=== PATIENT | female | born 1990 | race Caucasian/White ===

== ENCOUNTER 2016-06-04 17:27 | Emergency (ER) | payer BC, MEDICAID ==
[~2016-06-04] VITALS: Ht 165.1 cm; Wt 108.4 kg
[2016-06-04 17:38] VITALS: BP_SYST 130
--- NOTE | 2016-06-04 17:43 | NUR ---
Patient triaged and placed in waiting room. VSS and patient appears in no acute distress at this time. Accompanied by SELF, awaiting available bed, and MD notified of need for MSE.
[2016-06-04 18:08] LABS: BASOPHILS # (AUTO) 0.1 K/uL (0.0-0.2); BASOPHILS % (AUTO) 0.5 % (0.0-2.0); EOSINOPHILS # (AUTO) 0.2 K/uL (0.0-0.4); EOSINOPHILS % (AUTO) 1.6 % (0.0-4.0); HEMATOCRIT 39.2 % (36-48); HEMOGLOBIN 13.8 g/dL (12.0-16.0); LYMPHOCYTES # (AUTO) 3.7 K/uL (1.0-5.5); LYMPHOCYTES % (AUTO) 28.1 % (20.5-51.5); MEAN CORPUSCULAR HEMOGLOBIN 30 pg (27-31); MEAN CORPUSCULAR HGB CONC 35 % (32-36); MEAN CORPUSCULAR VOLUME 85 fL (79.0-98.0); MONOCYTES % (AUTO) 7.7 % (1.7-9.3); NEUTROPHILS % (AUTO) 62.1 % (40.0-70.0); PLATELET COUNT (AUTO) 301 K/uL (130-430); RED BLOOD CELL COUNT(AUTO) 4.63 MIL/uL (4.2-6.2); RED CELL DISTRIBUTION WIDTH 12.1 % (9.0-15.0)
[2016-06-04 18:17] LABS: BILIRUBIN,URINE NEGATIVE (NEGATIVE); BLOOD, URINE NEGATIVE (NEGATIVE); CLARITY/URINE HAZY (CLEAR); COLOR,URINE YELLOW (YELLOW); GLUCOSE,URINE NEGATIVE (NEGATIVE); KETONES,URINE NEGATIVE (NEGATIVE); LEUKOCYTE ESTERASE ,URINE NEGATIVE (NEGATIVE); NITRITE, URINE NEGATIVE (NEGATIVE); PH,URINE 5.5 (5.0-8.0); PROTEIN URINE NEGATIVE (NEGATIVE); UROBILINOGEN,URINE 0.2 (0.2-1.0)
[2016-06-04 18:29] LABS: CREATININE 0.79 mg/dL (0.55-1.30); POTASSIUM 3.5 mmol/L (3.5-5.1)
[2016-06-04 18:33] LABS: ALBUMIN 3.6 g/dL (3.4-4.8); TOTAL BILIRUBIN 0.5 mg/dL (0.0-1.0); TOTAL PROTEIN, SERUM 7.2 g/dL (6.4-8.3)
--- NOTE | 2016-06-04 18:42 | NUR ---
PT AMBULATORY TO RESTROOM Addendum: 06/04/16 at 1900 by [facility] [address]ORY TO [address] SCAN
--- NOTE | 2016-06-04 18:59 | NUR ---
Patient to ER bed 4 to gown for evaluation. Side rails up.
[2016-06-04] MEDS ORDERED: NACL 0.9% 1,000 ML IV ONE (19:57)
[2016-06-04] MEDS ORDERED: DIPHENHYDRAMINE INJ 50 MG/ML VIAL IVP ONE (20:00)
[2016-06-04] MEDS ORDERED: KETOROLAC TROMETHAMINE 30 MG VIAL IVP ONE (20:00)
--- NOTE | 2016-06-04 20:15 | NUR ---
ER at bedside examining patient.
--- NOTE | 2016-06-04 20:20 | NUR ---
Pt was taken to ultrasound via wheel chair
--- NOTE | 2016-06-04 21:16 | NUR ---
Pt discharged with no discharge instruction. will come back get them tomorrow
== END 2016-06-04 21:16 | disposition home or self-care (01) ==
LOC: SED 17:27
DX: N83.202 Unspecified ovarian cyst, left side (principal); N83.201 Unspecified ovarian cyst, right side; F41.9 Anxiety disorder, unspecified
CPT/HCPCS: 36415; 74176; 76830; 76857; 80053; 81003; 81025; 83690; 85025; 99285; J7030

== ENCOUNTER 2017-07-03 13:04 | Emergency (ER) | payer BC, MEDICAID ==
[~2017-07-03] VITALS: Ht 165.1 cm; Wt 104.3 kg
[2017-07-03 13:13] VITALS: BP_SYST 151
[2017-07-03] MEDS ORDERED: KETOROLAC TROMETHAMINE 60 MG/2 ML VIAL IM ONE (13:45)
[2017-07-03 14:12] LABS: BASOPHILS % (AUTO) 0.4 % (0.0-2.0); EOSINOPHILS # (AUTO) 0.1 K/uL (0.0-0.4); EOSINOPHILS % (AUTO) 1.7 % (0.0-4.0); HEMATOCRIT 41.6 % (36-48); HEMOGLOBIN 13.8 g/dL (12.0-16.0); LYMPHOCYTES # (AUTO) 3.2 K/uL (1.0-5.5); LYMPHOCYTES % (AUTO) 36.5 % (20.5-51.5); MEAN CORPUSCULAR HEMOGLOBIN 29 pg (27-31); MEAN CORPUSCULAR HGB CONC 33 % (32-36); MEAN CORPUSCULAR VOLUME 89 fL (79.0-98.0); MONOCYTES # (AUTO) 0.8 K/uL (0.0-1.0); MONOCYTES % (AUTO) 8.7 % (1.7-9.3); NEUTROPHILS # (AUTO) 4.7 K/uL (1.8-7.7); NEUTROPHILS % (AUTO) 52.7 % (40.0-70.0); PLATELET COUNT (AUTO) 295 K/uL (130-430); RED BLOOD CELL COUNT(AUTO) 4.69 MIL/uL (4.2-6.2); RED CELL DISTRIBUTION WIDTH 12.4 % (9.0-15.0); WHITE BLOOD COUNT (AUTO) 8.8 K/uL (4.8-10.8)
[2017-07-03 14:22] LABS: CALCIUM 9.4 mg/dL (8.4-11.0); CREATININE 0.72 mg/dL (0.55-1.30); POTASSIUM 3.8 mmol/L (3.5-5.1)
[2017-07-03 14:27] LABS: ALBUMIN 3.8 g/dL (3.4-4.8); TOTAL BILIRUBIN 0.4 mg/dL (0.0-1.0)
[2017-07-03] MEDS ORDERED: MORPHINE 4 MG/ML INJ. SYRINGE IVP ONE (14:45)
[2017-07-03] MEDS ORDERED: MORPHINE 4 MG/ML INJ. SYRINGE IM ONE (15:00)
[2017-07-03 15:44] VITALS: BP_SYST 142
== END 2017-07-03 15:41 | disposition home or self-care (01) ==
LOC: SED 13:04
DX: M79.662 Pain in left lower leg (principal); R25.2 Cramp and spasm; R03.0 Elevated blood-pressure reading, without diagnosis of hypertension; F41.9 Anxiety disorder, unspecified; E66.01 Morbid (severe) obesity due to excess calories; Z68.38 Body mass index [BMI] 38.0-38.9, adult
CPT/HCPCS: 36415; 80053; 81025; 85025; 85379; 93971; 96372; 99285; J1885; J2270